=== PATIENT | female | born 1995 ===

== ENCOUNTER 2017-07-18 22:13 | Emergency (ER) | payer OTHER ==
[~2017-07-18] VITALS: Ht 160 cm; Wt 54.4 kg
[2017-07-18 22:18] VITALS: BP 109/71
--- NOTE | 2017-07-18 23:20 | ED HEAD/FACIAL INJ COMPLAINT ---
History of Present Illness General Chief Complaint: Facial or Head Injury Stated Complaint: HIT HEAD AT [employer] Source: patient, family Exam Limitations: no limitations Vital Signs & Intake/Output Vital Signs & Intake/Output Vital Signs Date Time Temp Pulse Resp B/P B/P Pulse O2 O2 Flow FiO2 Mean Ox Delivery Rate 07/18 2218 98.2 90 18 109/71 100 Room Air ED Intake and Output 07/19 0000 07/18 1200 Intake Total Output Total Balance Patient 120 lb Weight Allergies Coded Allergies: No Known Allergies (07/18/17) Triage Note: PT TO TRIAGE S/P HITTING HEAD ON GROUND AT [employer]. PT DENIES LOC. STATES SLIGHT NAUSEA WHEN MOVING TOO FAST AND SLIGHT PHOTOSENSITIVITY. PT REPORTS PAIN IS /10. Triage Nurses Notes Reviewed? yes Onset: Gradual Severity: moderate Location: frontal Method of Injury: fall Loss of Consciousness: no loss of consciousness : No Patient currently breastfeeds: No HPI: 21yo female presents to ED complaining of head injury at her [employer] competition earlier today. Patient states that she was performing dance routine when she fell and hit her forehead on the gym floor. Patient feels as though her head bounced off the floor. There was no loss of consciousness or blackout. Patient was able to finish the dance routine. Patient complaining of mild frontal headache currently. She is also complaining of photophobia, phonophobia , difficulty with memory, difficulty focusing, mild nausea. The patient denies visual changes, neck pain, abdominal pain. Past History Travel History Traveled to [place] past 21 day No Medical History Any Pertinent Medical History? none Neurological: NONE EENT: NONE Cardiovascular: NONE Respiratory: NONE Gastrointestinal: NONE Hepatic: NONE Renal: NONE Musculoskeletal: NONE Psychiatric: NONE Endocrine: NONE Blood Disorders: NONE Cancer(s): NONE ASSISTANT TODDLER TEACHER/Reproductive: NONE Surgical History Surgical History: non-contributory Psychosocial History What is your primary language Wolof Tobacco Use: Never used Family History Hx Contributory? No Review of Systems Review of Systems Constitutional: Reports: no symptoms. EENTM: Reports: see HPI. Respiratory: Reports: no symptoms. Cardiovascular: Reports: no symptoms. GI: Reports: see HPI. Genitourinary: Reports: no symptoms. Musculoskeletal: Reports: no symptoms. Skin: Reports: no symptoms. Neurological/Psychological: Reports: see HPI. Hematologic/Endocrine: Reports: no symptoms. Immunologic/Allergic: Reports: no symptoms. All Other Systems: Reviewed and Negative Physical Exam Physical Exam General Appearance: well developed/nourished, no apparent distress, alert, awake Head: atraumatic, normal appearance Eyes: Bilateral: normal appearance, PERRL, EOMI. Ears, Nose, Throat: normal pharynx, normal ENT inspection, hearing grossly normal Neck: normal inspection, supple, full range of motion, no midline tenderness Respiratory: normal breath sounds, no respiratory distress, lungs clear Cardiovascular: regular rate/rhythm Back: normal inspection, normal range of motion Extremities: normal inspection, normal range of motion Psychiatric: awake, alert, oriented x 3 Cranial Nerves: normal hearing, normal speech, PERRL, CN II-XII intact Coordination/Gait: normal finger to nose, normal gait Motor/Sensory: no motor/sensory deficits Skin: intact, normal color, warm/dry Progress Differential Diagnosis: c-spine injury, facial fracture, ICH, orbit fracture, skull fracture, concussion Plan of Care: The patient is neurologically intact, no focal neurologic deficit. She is answering questions readily, following commands. Patient has symptoms consistent with a concussion. She has had no vomiting, no severe headache, no loss of consciousness. Patient states she feels a very mild headache and fatigue. Based on physical exam findings and patient's mechanism of injury there is a low suspicion for acute intracranial abnormality. CT scan deferred at this time given risk of radiation. Patient was given strict return precautions for worsening headache or other symptoms. She will refrain from exercise and physical activity until her symptoms have completely resolved. The Patient understands and agrees with the plan of care. Departure Departure Disposition: HOME OR SELF CARE Condition: Stable Clinical Impression Primary Impression: Head injury Qualifiers: Encounter type: initial encounter Qualified Code: S09.90XA - Unspecified injury of head, initial encounter Secondary Impressions: Concussion Qualifiers: Encounter type: initial encounter Loss of consciousness presence/ duration: without LOC Qualified Code: S06.0X0A - Concussion without loss of consciousness, initial encounter Referrals: Nelly Spencer MD (PCP/Family) Additional Instructions: You were given paperwork on signs and symptoms of a concussion. No exercising or contact sports until your symptoms have resolved for over 48 hours. It is also recommended to avoid excessive television, computer use, mental stimulation. Monitor for worsening symptoms such as increasing headache, vision changes, vomiting, return to the emergency Department with any of these symptoms or other concerns. Please note that there might be incidental findings in your evaluation that are unrelated to the current emergency department visit. Please notify your primary care doctor about this emergency department visit in order to obtain and review all of the testing performed so that these incidental findings can be monitored as needed. If you had an x-ray performed, please understand that some fractures may not be seen on the initial set of x-rays. If your symptoms persist you might need a repeat set of x-rays to check for such a fracture. If you had a laceration evaluated, please understand that foreign bodies such as glass or wood may not be visible to the naked eye or on plain x-rays. If the wound becomes red, swollen, increasingly more painful or if there is any drainage from the wound, please have it reevaluated by a physician for the possibility of a retained foreign body. If you're unable to follow up as outlined in the discharge instructions please return to the emergency department. Thank you for choosing the [facility] Emergency Department for your care. It was a pleasure to serve you today. Departure Forms: Customer Survey General Discharge Information
== END 2017-07-18 23:58 ==
LOC: ERH 22:13
DX: S09.90XA Unspecified injury of head, initial encounter (principal); S06.0X0A Concussion without loss of consciousness, initial encounter; W19.XXXA Unspecified fall, initial encounter; Y93.41 Activity, dancing; Y92.9 Unspecified place or not applicable
CPT/HCPCS: 99282